=== PATIENT | female | born 1985 | race Hispanic/Latino ===

== ENCOUNTER 2019-11-07 18:30 | Emergency (ER) | payer SELFPAY ==
[2019-11-07] MEDS ORDERED: ASPIRIN 325 MG TABLET ONE (19:55)
== END 2019-11-07 21:51 | disposition home or self-care (01) ==
LOC: EDH 18:30
DX: R07.89 Other chest pain (principal); F14.10 Cocaine abuse, uncomplicated; I10 Essential (primary) hypertension; R42 Dizziness and giddiness